=== PATIENT | male | born 2000 | race Asian ===

== ENCOUNTER → 2022-11-04 08:36 | Outpatient (CLI) | payer OTHER, SELFPAY ==
[2022-11-04 10:49] LABS: Alanine Aminotransferase 50 IU/L (<50); Albumin 4.7 g/dL (3.5-5.0); Albumin Globulin Ratio 1.5 (1.0-2.8); Alkaline Phosphatase 75 U/L (38-126); Aspartate Aminotransferase 27 IU/L (17-59); BUN Creatinine Ratio 16.5 (6-22); Bilirubin Total 0.9 mg/dL (0.2-1.3); Blood Urea Nitrogen 15 mg/dL (9-20); Calcium 9.7 mg/dL (8.4-10.2); Carbon Dioxide 31 mmol/L (22-32); Chloride 100 mmol/L (98-107); Cholesterol 206 mg/dL (140-199); Estimated Glomerular Filt Rate > 60 mL/min (>60); Globulin 3.2 g/dL (1.7-4.1); Glucose 92 mg/dL (70-100); HDL Cholesterol 49 mg/dL (40-60); HEMOLYSIS < 15 (0-50); LDL Cholesterol Calculated 130 mg/dL (<100); Potassium 4.3 mmol/L (3.4-5.1); Sodium 139 mmol/L (137-145); Total Protein 7.9 g/dL (6.3-8.2); Triglycerides 137 mg/dL (35-150)
[2022-11-04 11:14] LABS: TSH w/ Reflex to FT4 1.16 uIU/mL (0.47-4.68)
== END ==
PROVIDERS: PCP Family Medicine; Referring Provider Family Medicine; Visit Provider Family Medicine
DX: F41.9 Anxiety disorder, unspecified (principal); R41.840 Attention and concentration deficit; Z00.00 Encounter for general adult medical examination without abnormal findings
CPT/HCPCS: 36415; 80053; 80061; 84443

== ENCOUNTER 2024-05-06 08:58 | Emergency (ER) | payer OTHER, SELFPAY ==
[2024-05-06] VITALS (8 sets, daily range): BP systolic 114–147; BP diastolic 72–106; PULSE 74–96; RESP 15–25; TEMP 36.6; O2SAT 97–99; BMI 27.4
--- NOTE | 2024-05-06 09:10 | ED_ITS ---
HPI - General Adult General Chief complaint: Chest Pain Stated complaint: intermittent upper right Chest px starting fri pm Time Seen by Provider: 05/06/24 09:05 History of Present Illness HPI narrative: 23-year-old male with history of anxiety and asthma, complains of 2 days duration of cough productive of scant white sputum, right anterior chest discomfort, somewhat worse with deep breathing, no fevers or chills. No injury or trauma new activities. No known exposure to persons with similar symptoms. He has not been using his inhaler, and would like a refill when asked. He has not tried any [id number] pain control medications. Related Data Previous Rx's Medication Instructions Recorded albuterol sulfate 90 mcg/actuation 2 puff inhalation Q6H PRN 11/06/21 aerosol inhaler shortness of breath or wheezing #8.5 grams epinephrine 0.3 mg/0.3 mL 0.3 mg (0.3 mL) IM ONCE 11/01/22 injection, auto-injector (EpiPen) anaphylaxis #2 ea loratadine 10 mg tablet 10 mg PO DAILY #90 tabs 11/01/22 albuterol sulfate 90 mcg/actuation 2 puff inhalation Q6H PRN 05/06/24 aerosol inhaler shortness of breath or wheezing #8.5 grams Allergies Allergy/AdvReac Type Severity Reaction Status Date / Time peanut Allergy Mild Unverified 11/01/22 16:02 Patient History Medical History (Updated 05/06/24 @ 09:28 by Merrick Toure MD) Eczema (~2002) Asthma (~2004) Allergies (~2004) Anxiety Seasonal allergies Mild intermittent asthma Surgical History (Updated 11/26/21 @ 19:57 by Lynne Shay) Anesthesia Micanopy teeth removed (~2018) Family History (Updated 11/26/21 @ 20:02 by Lynne Shay) Father Hypertension Asthma Eczema Mother Mental health problem Grandfather Hypertension Hyperlipidemia Stroke Grandmother History of heart disease Hyperlipidemia Hypertension Mental health problem Grandfather Hypertension Hyperlipidemia Stroke Grandmother Hyperlipidemia Hypertension Kidney disease Social History Smoking Status: Never smoker Smoking Status: Never smoker Exam Narrative Exam Narrative: GENERAL: Well-developed patient, in mild distress. HEAD: Atraumatic. Normocephalic. EYES: Pupils equal round and reactive. Extraocular motions intact. No scleral icterus. No injection or drainage. ENT: Nose without bleeding, purulent drainage. Throat without erythema, tonsillar hypertrophy or exudate. Airway patent. NECK: Trachea midline. Non tender CARDIOVASCULAR: Regular rate and rhythm without murmurs, gallops, or rubs. RESPIRATORY: Clear to auscultation. Breath sounds equal bilaterally. No wheezes, rales, or rhonchi. Right anterior chest wall tenderness, no skin changes, no bruising or abrasions, no crepitance, no skin lesions or vesicles. GASTROINTESTINAL: Abdomen soft, non-tender, nondistended. EXTREMITIES: No edema or joint tenderness. BACK: Nontender without deformity or crepitance. No flank tenderness. NEURO: AOx3. Motor functions grossly nonfocal SKIN: No rash or erythema of visible areas Initial Vital Signs Initial Vital Signs: Vital Signs Pulse Rate 96 H 05/06/24 09:08 Respiratory Rate 17 05/06/24 09:08 Pulse Oximetry 99 05/06/24 09:08 Course Orders Ordered: Discontinued Medications Ibuprofen (Ibuprofen 400 Mg Tablet) 400 mg PO NOW ONE Stop: 05/06/24 09:26 Last Admin: 05/06/24 09:30 Dose: 400 mg Documented By: [facility] Vital Signs Vital signs: Vital Signs - 8 hr 05/06/24 09:09 Temperature 97.9 F Pulse Rate 94 H Respiratory Rate 18 Blood Pressure 147/106 H Pulse Oximetry 99 Oxygen Delivery Method Room Air Medical Decision Making Lab Data Lab results reviewed: Yes I reviewed the patient's lab results. Lab results narrative: COVID, flu, RSV swab negative Labs: Lab Results 05/06/24 Range/Units 09:26 SARS-CoV-2 (PCR) Negative (Negative) Influenza A (RT-PCR) Flu a negative (NEGATIVE) Influenza B (RT-PCR) Flu b negative (NEGATIVE) RSV (PCR) Negative (Negative) Imaging Data Chest x-ray: Radiologist's Impression: [address] [address] XRay Report Signed Patient: Brandon Cervantes MR#: [id number] : 2000 Acct:[id number] Age/Sex: 23 / M Date of Service: 05/06/24 Loc: ED Accession Number: [id number] Procedure: XR chest 2V Ordering Provider: Merrick Toure MD PROCEDURE: XR CHEST 2V INDICATIONS: right chest pain, cough TECHNIQUE: 2 views of the chest were acquired. COMPARISON: None. FINDINGS: Surgical changes and devices: None. Lungs and pleura: Lungs are clear. No pleural effusions or pneumothorax. Mediastinum: Mediastinal contours are normal. Heart size is normal. Bones and chest wall: No suspicious bony abnormalities. Soft tissues appear unremarkable. IMPRESSION: No focal infiltrates are seen. No acute cardiopulmonary abnormality is seen. Dictated by: Mango Mcwilliams M.D. on 05/06/2024 at 9:07 Approved by: Mango Mcwilliams M.D. on 05/06/2024 at 9:08 ECG Data Attestation: I personally reviewed and interpreted this ECG as follows: Interpretation: Normal sinus rhythm with rate of 90, no obvious ST segment elevation or depression changes. [place] 120, QRS 94, QTC 428. [facility] Narrative Medical decision making narrative: 23-year-old male with history of anxiety and asthma, 2 days duration upper respiratory infection symptoms, afebrile, sirs screen negative, some tenderness right anterior chest. Screening EKG done by nursing without obvious ischemic changes. We will obtain chest x-ray, send swab for COVID/flu/RSV. Oral ibuprofen dose. No wheeze audible, no crackles, no respiratory distress, normal room-air sat. Declines breathing treatment for now, but we would like refill of his albuterol. Patient agreeable to this workup COVID, flu, RSV negative Chest x-ray no acute changes, see radiology report Symptoms seemed to be improving with oral ibuprofen dose, likely chest wall discomfort in context of recent upper respiratory infection. History of asthma, no wheezing present, did send refill of his albuterol to his pharmacy, with dispensed station of spacer to use with his inhaler with education. Discharged home, return precautions discussed Discharge Plan Departure Patient Disposition: Home Clinical Impression: Chest wall pain, Upper respiratory infection Activity Restrictions/Additional Instructions: Upper respiratory infection symptoms, cough for 2 days, no fever on triage, some right-sided chest discomfort, some tenderness on palpation right anterior chest. Chest radiograph without obvious pneumonia changes. COVID swab and influenza and RSV swab negative. Screening EKG without obvious ischemic changes of your heart, symptoms do not seem particularly worrisome for any cardiac event. Ibuprofen for chest wall discomfort. Consider use of your inhaler, refill sent to your pharmacy, 2 puffs 4 times daily for the next week or so if you decide to use it during this illness. , then as needed. Please also use with spacer to deliver the medication more effectively. Recheck with your regular doctor if not improving in the next 2-3 days. Return to this/nearest emergency department for any change worsening symptoms or any concerns prior Prescriptions: New albuterol sulfate 90 mcg/actuation HFA aerosol inhaler 2 puff inhalation Q6H PRN (Reason: shortness of breath or wheezing) Qty: 8.5 0RF No Action albuterol sulfate 90 mcg/actuation HFA aerosol inhaler 2 puff inhalation Q6H PRN (Reason: shortness of breath or wheezing) Qty: 8.5 0RF loratadine 10 mg tablet 10 mg PO DAILY Qty: 90 3RF epinephrine [EpiPen] 0.3 mg/0.3 mL auto-injector 0.3 mg IM ONCE Qty: 2 1RF Rx Instructions: as a single dose; may repeat once after 15 minutes Referrals: Rosendo Singh MD [Primary Care Provider] - Stand Alone Forms: Patient Portal/API/Survey, Work Release Note
--- NOTE | 2024-05-06 09:12 | EKG_ITS ---
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
--- NOTE | 2024-05-06 09:16 | PC.NURSE ---
Addendum entered by Monica Johnson R.N. 05/06/24 09:21: pt does report cough for two days. intermittent. no sputem. no sob Original Note: Patient reports he developed sore throat on tuesday, and had development of chest pain while working. He states he had to leave work because pain was so bad. He states pain is intermittent and when present is unbearable for 2-3 minutes of duration. Pain is on right side of chest. Denies worsing with movement or breathing, non reproducible. Pt states sore throat has resolved. No fever, nausea, vomiting, cough or other flu like symptoms.
--- NOTE | 2024-05-06 09:21 | DI.RAD.S_ITS ---
PROCEDURE: XR CHEST 2V INDICATIONS: right chest pain, cough TECHNIQUE: 2 views of the chest were acquired. COMPARISON: None. FINDINGS: Surgical changes and devices: None. Lungs and pleura: Lungs are clear. No pleural effusions or pneumothorax. Mediastinum: Mediastinal contours are normal. Heart size is normal. Bones and chest wall: No suspicious bony abnormalities. Soft tissues appear unremarkable. IMPRESSION: No focal infiltrates are seen. No acute cardiopulmonary abnormality is seen. Dictated by: Mango Mcwilliams M.D. on 05/06/2024 at 9:07 Approved by: Mango Mcwilliams M.D. on 05/06/2024 at 9:08
[2024-05-06] MEDS: IBUPROFEN 400 MG TABLET PO (09:30)
[2024-05-06 10:08] LABS: Influenza A - CEPHEID Flu A NEGATIVE (NEGATIVE); Influenza B - CEPHEID Flu B NEGATIVE (NEGATIVE); Respiratory Syncytial Virus Negative (Negative)
[2024-05-06 10:53] LABS: COVID-19 CEPHEID 4-PLEX PCR Negative (Negative)
== END 2024-05-06 11:33 | disposition home or self-care (01) ==
PROVIDERS: Emergency Provider Emergency Medicine; PCP Family Medicine
DX: R07.89 Other chest pain (principal); J06.9 Acute upper respiratory infection, unspecified; Z87.09 Personal history of other diseases of the respiratory system
CPT/HCPCS: 0241U; 71046; 93005; 99283; 99284

== ENCOUNTER → 2024-09-11 16:42 | Outpatient (CLI) | payer OTHER, SELFPAY ==
[2024-09-11 17:34] LABS: Add Manual Diff / Slide Review NO; Basophils Absolute Auto 0 /uL (0-100); Basophils Percent Auto 0.6 % (0-2); Eosinophils Absolute Auto 400 /uL (0-450); Eosinophils Percent Auto 7.4 % (2-4); Hematocrit 49.3 % (41-53); Hemoglobin 16.7 g/dL (13.5-17.5); Lymphocytes Absolute Auto 2100 /uL (1100-4500); Lymphocytes Percent Auto 35.2 % (25-40); Mean Corpuscular HGB Conc 33.9 % (30-36); Mean Corpuscular Hemoglobin 30.2 PG (26-34); Mean Corpuscular Volume 89.3 fL (80-100); Monocytes Absolute Auto 600 /uL (0-900); Monocytes Percent Auto 9.6 % (3-14); Neutrophils Absolute Auto 2800 /uL (1500-7000); Neutrophils Percent Auto 47.2 % (50-75); Platelet Count 275 X10^3/uL (150-400); Red Blood Cell Count 5.52 X10^6/uL (4.5-5.9); Red Cell Distribution Width 13.3 % (11.6-14.8); White Blood Cell Count 5.9 X10^3/uL (4.5-11.0)
[2024-09-11 17:53] LABS: Alanine Aminotransferase 60 IU/L (<50); Albumin 4.7 g/dL (3.5-5.0); Albumin Globulin Ratio 1.7 (1.0-2.8); Alkaline Phosphatase 72 U/L (38-126); Aspartate Aminotransferase 34 IU/L (17-59); BUN Creatinine Ratio 14.9 (6-22); Bilirubin Total 1.2 mg/dL (0.2-1.3); Blood Urea Nitrogen 15 mg/dL (9-20); Calcium 9.8 mg/dL (8.4-10.2); Carbon Dioxide 30 mmol/L (22-32); Chloride 103 mmol/L (98-107); Cholesterol 189 mg/dL (140-199); Estimated Glomerular Filt Rate > 60 mL/min (>60); Globulin 2.8 g/dL (1.7-4.1); Glucose 100 mg/dL (70-99); HDL Cholesterol 49 mg/dL (40-60); HEMOLYSIS < 15 (0-50); LDL Cholesterol Calculated 118 mg/dL (<100); Potassium 4.5 mmol/L (3.4-5.1); Sodium 138 mmol/L (137-145); Total Protein 7.5 g/dL (6.3-8.2); Triglycerides 112 mg/dL (35-150)
[2024-09-11 18:26] LABS: TSH w/ Reflex to FT4 1.08 uIU/mL (0.47-4.68)
== END ==
PROVIDERS: PCP Family Medicine; Referring Provider Family Medicine; Visit Provider Family Medicine
DX: Z00.00 Encounter for general adult medical examination without abnormal findings (principal); E78.5 Hyperlipidemia, unspecified; T78.40XA Allergy, unspecified, initial encounter; F41.9 Anxiety disorder, unspecified
CPT/HCPCS: 36415; 80053; 80061; 84443; 85025